=== PATIENT | male | born 1950 | race Two or more races ===

== ENCOUNTER 2023-03-24 15:05 | Outpatient (CLI) | payer OTHER | END 2023-03-24 15:16 | disposition home or self-care (01) | LOC: SONOGRAMA 15:05 | PROVIDERS: ATTEND Pathology Anatomic Pathology & Clinical Pathology | DX: D11.0 Benign neoplasm of parotid gland (principal); R59.0 Localized enlarged lymph nodes ==

== ENCOUNTER 2023-05-19 08:05 | Outpatient (CLI) | payer OTHER | END 2023-05-19 08:09 | disposition home or self-care (01) | LOC: RAD 08:05 | PROVIDERS: ATTEND Orthopaedic Surgery | DX: M17.0 Bilateral primary osteoarthritis of knee (principal); R93.6 Abnormal findings on diagnostic imaging of limbs ==

== ENCOUNTER 2023-06-10 11:08 | Outpatient (CLI) | payer OTHER | END 2023-06-10 11:12 | disposition home or self-care (01) | LOC: RAD 11:08 | PROVIDERS: ATTEND Internal Medicine | DX: Z01.818 Encounter for other preprocedural examination (principal) ==

== ENCOUNTER 2023-06-19 14:06 | Inpatient (IN) | payer OTHER ==
[~2023-06-19] VITALS: Ht 175.3 cm; Wt 74.8 kg
[~2023-06-19 14:06] MED LIST: ALTACE2.5 MG PO; CHILDREN'S ASPI81 MG PO; MEMANTINE HCL E28 MG PO; ROSUVASTATIN CAL5 MG PO
[2023-06-24] MEDS ORDERED: KETOROLAC TROMETHAMINE 30 MG VIAL ONE (07:19)
[2023-06-24] MEDS ORDERED: METOCLOPRAMIDE HCL 5 MG/ML VIAL ONE (07:19)
[2023-06-24] MEDS ORDERED: LIDOCAINE HCL 1%/Epi 20ML VIAL IJ ONE ×2 (07:20→09:00)
[2023-06-24] MEDS ORDERED: BUPIVACAINE HCL/PF 0.5% 30ML ML ONE ×2 (07:20→07:22)
[2023-06-24] MEDS ORDERED: VANCOMYCIN HCL 1,000 MG VIAL ONE (07:20)
[2023-06-24] MEDS ORDERED: VANCOMYCIN HCL 1,000 MG VIAL IV ONE (08:45)
[2023-06-24] MEDS ORDERED: METOCLOPRAMIDE HCL 5 MG/ML VIAL IV ONE (09:00)
[2023-06-24] MEDS ORDERED: ISOPROPYL ALCOHOL 30 ML OUNCE TOP ONE (09:00)
[2023-06-24] MEDS ORDERED: TRANEXAMIC ACID 100MG/1ML (1000MG) AMPUL IV ONE (09:00)
[2023-06-24] MEDS ORDERED: VANCOMYCIN HCL 1,000 MG VIAL IR ONE ×2 (09:00)
[2023-06-24] MEDS ORDERED: CEFOXITIN SODIUM 1,000 MG VIAL IV ONE (09:00)
[2023-06-24] MEDS ORDERED: BUPIVACAINE HCL 30 ML VIAL IJ ONE (09:00)
[2023-06-24] MEDS ORDERED: KETOROLAC TROMETHAMINE 30 MG VIAL IM ONE (09:00)
[2023-06-24] MEDS ORDERED: MORPHINE SULFATE 4 MG/ML CARTRIDGE IV ONE (09:00)
[2023-06-24] MEDS ORDERED: PANTOPRAZOLE SODIUM 40 MG TABLET.DR PO SCH (14:47)
[2023-06-24] MEDS ORDERED: SODIUM CHLORIDE 0.45 % 1,000 ML IV SCH (15:00)
[2023-06-24] MEDS ORDERED: MEPERIDINE HCL/PF 50 MG/ML VIAL IM PRN (15:00)
[2023-06-24] MEDS ORDERED: PROMETHAZINE HCL 50 MG/ML AMPUL IM PRN (15:00)
[2023-06-24] MEDS ORDERED: ONDANSETRON HCL 2 MG/ML VIAL IV PRN (15:00)
[2023-06-24] MEDS ORDERED: TRAMADOL HCL 50 MG TABLET PO PRN (15:00)
[2023-06-24] MEDS ORDERED: ONDANSETRON 4 MG TAB.RAPDIS PO PRN (15:00)
[2023-06-24] MEDS ORDERED: PROMETHAZINE HCL 25 MG/ML AMPUL ONE (15:36)
[2023-06-24] MEDS ORDERED: CEFAZOLIN SODIUM 1,000 MG VIAL ONE (15:49)
[2023-06-24] MEDS ORDERED: CEFAZOLIN SODIUM 1,000 MG VIAL IV SCH (17:00)
[2023-06-24] MEDS ORDERED: CELECOXIB 200 MG CAPSULE PO SCH (17:00)
[2023-06-24] MEDS ORDERED: ACETAMINOPHEN 325 MG TABLET PO SCH (17:00)
[2023-06-24] MEDS ORDERED: KETOROLAC TROMETHAMINE 10 MG TABLET PO SCH (21:00)
[2023-06-25 06:24] LABS: HEMATOCRIT 34.3 % (39.0-48.0); HEMOGLOBIN 11.8 g/dL (13-16.00); MEAN CELL VOLUME 88.7 fL (80.0-100.00); MEAN CORPUSCULAR HEMOGLOBIN 30.5 pg (27.00-32.0); MEAN CORPUSCULAR HGB CONC 34.4 g/dl (32.0-36.0); RED BLOOD COUNT 3.87 M/uL (4.00-6.00); RED CELL DISTRIBUTION WIDTH 13.4 % (11.5-14.5)
[2023-06-25 06:45] LABS: PLATELET COUNT 130 K/uL (150-450)
[2023-06-25] MEDS ORDERED: RIVAROXABAN 10 MG TAB PO SCH (09:00)
[2023-06-25 15:23] LABS: ALBUMIN 3.1 gm/dL (3.4-5.0); BILIRUBIN TOTAL 0.72 mg/dL (0.3-1.2); CALCIUM 8.3 mg/dL (8.5-10.1); CREATININE SERUM 0.75 mg/dL (0.70-1.30); GFR 101.52; GLOBULINA 2.7 G/DL (2.4-3.5); POTASSIUM 3.9 mEq/L (3.5-5.1); TOTAL PROTEIN 5.8 gm/dL (6.4-8.2)
[2023-06-26 07:09] LABS: HEMATOCRIT 33.1 % (39.0-48.0); HEMOGLOBIN 11.4 g/dL (13-16.00); MEAN CELL VOLUME 88.3 fL (80.0-100.00); MEAN CORPUSCULAR HEMOGLOBIN 30.5 pg (27.00-32.0); MEAN CORPUSCULAR HGB CONC 34.5 g/dl (32.0-36.0); PLATELET COUNT 150 K/uL (150-450); RED BLOOD COUNT 3.75 M/uL (4.00-6.00); RED CELL DISTRIBUTION WIDTH 13.3 % (11.5-14.5)
[2023-06-26] MEDS ORDERED: MULTIVIT-MIN/IRON FUM/FOLIC AC 1 TAB TABLET PO SCH (09:00)
[2023-06-26] MEDS ORDERED: SENNA/DOCUSATE SODIUM 1 TAB TABLET PO SCH (09:00)
== END 2023-06-26 15:36 | DRG 470 ==
LOC: O/R 06-24 05:05 → SURG 06-24 07:00 → SURH 06-24 11:10 → CIR.AMB 06-24 11:59 → EDSTATUS 06-24 14:53 → SURG 06-24 14:53 → SURH 06-26 15:36
PROVIDERS: Internal Medicine; ADMIT Orthopaedic Surgery; ATTEND Orthopaedic Surgery
PROC: 0SRC0J9 Replacement of Right Knee Joint with Synthetic Substitute, Cemented, Open Approach (ICD-10-PCS; principal; 2023-06-24 07:00)
DX: M17.11 Unilateral primary osteoarthritis, right knee (principal); Z20.822 Contact with and (suspected) exposure to COVID-19

== ENCOUNTER 2024-03-08 09:44 | Outpatient (CLI) | payer OTHER ==
[2024-03-08 10:57] LABS: HEMATOCRIT 40.7 % (39.0-48.0); HEMOGLOBIN 14.2 g/dL (13-16.00); MEAN CELL VOLUME 86.9 fL (80.0-100.00); MEAN CORPUSCULAR HEMOGLOBIN 30.2 pg (27.00-32.0); MEAN CORPUSCULAR HGB CONC 34.7 g/dl (32.0-36.0); PLATELET COUNT 177 K/uL (150-450); RED BLOOD COUNT 4.69 M/uL (4.00-6.00)
[2024-03-08 11:03] LABS: ERYTHROCYTE SEDIMENTATION RATE 2 mm/hr
[2024-03-08 11:06] LABS: D DIMER 0.52 MG/L
== END 2024-03-08 09:50 | disposition home or self-care (01) ==
LOC: LAB 09:44
PROVIDERS: ATTEND Orthopaedic Surgery
DX: D64.9 Anemia, unspecified (principal); M06.4 Inflammatory polyarthropathy

== ENCOUNTER 2024-03-08 10:07 | Outpatient (CLI) | payer OTHER | END 2024-03-08 10:18 | disposition home or self-care (01) | LOC: RAD 10:07 | PROVIDERS: ATTEND Orthopaedic Surgery | DX: M23.91 Unspecified internal derangement of right knee (principal); Z96.651 Presence of right artificial knee joint; M54.2 Cervicalgia; M25.522 Pain in left elbow ==

== ENCOUNTER 2024-04-02 11:02 | Outpatient (CLI) | payer OTHER ==
[2024-04-02 11:38] LABS: HEMATOCRIT 40.5 % (39.0-48.0); HEMOGLOBIN 13.7 g/dL (13-16.00); MEAN CELL VOLUME 87.8 fL (80.0-100.00); MEAN CORPUSCULAR HEMOGLOBIN 29.6 pg (27.00-32.0); MEAN CORPUSCULAR HGB CONC 33.8 g/dl (32.0-36.0); PLATELET COUNT 144 K/uL (150-450); RED BLOOD COUNT 4.62 M/uL (4.00-6.00); RED CELL DISTRIBUTION WIDTH 13.6 % (11.5-14.5)
[2024-04-02 11:42] LABS: ERYTHROCYTE SEDIMENTATION RATE 14 mm/hr
[2024-04-02 11:59] LABS: D DIMER 0.42 MG/L
== END 2024-04-02 11:06 | disposition home or self-care (01) ==
LOC: LAB 11:02
PROVIDERS: ATTEND Orthopaedic Surgery
DX: D64.9 Anemia, unspecified (principal); M06.4 Inflammatory polyarthropathy

== ENCOUNTER → 2024-05-10 09:08 | Outpatient (CLI) | payer OTHER ==
[2024-05-10 10:36] LABS: HEMATOCRIT 41.6 % (39.0-48.0); HEMOGLOBIN 14.1 g/dL (13-16.00); MEAN CELL VOLUME 87.3 fL (80.0-100.00); MEAN CORPUSCULAR HEMOGLOBIN 29.7 pg (27.00-32.0); PLATELET COUNT 176 K/uL (150-450); RED BLOOD COUNT 4.77 M/uL (4.00-6.00); RED CELL DISTRIBUTION WIDTH 14.6 % (11.5-14.5)
[2024-05-10 10:45] LABS: ERYTHROCYTE SEDIMENTATION RATE 5 mm/hr
[2024-05-10 11:02] LABS: D DIMER 0.93 MG/L
== END | disposition home or self-care (01) ==
LOC: LAB 09:08
PROVIDERS: ATTEND Orthopaedic Surgery
DX: D64.9 Anemia, unspecified (principal); M06.4 Inflammatory polyarthropathy